=== PATIENT | female | born 2000 | race Two or more races ===

== ENCOUNTER 2018-02-09 11:07 | Emergency (ER) | payer BC ==
[~2018-02-09] VITALS: Ht 152.4 cm; Wt 81.0 kg
[~2018-02-09 11:07] MED LIST: NOHOMEMEDS; PREDNISONE50 MG PO
[2018-02-09 12:45] LABS: HEMATOCRIT 39.3 % (36.0-46.0); HEMOGLOBIN 13.2 G/DL (11.9-15.5); MCH 31.3 PG (29.0-34.0); MCHC 33.6 G/DL (30.0-36.0); MCV 93.1 FL (83-99); PLATELET COUNT 181 K/uL (156-360); RBC DIS.WIDTH-CV 12.1 % (11.8-14.6); RBC DIS.WIDTH-SD 41.7 % (39-53); RED BLOOD COUNT 4.22 M/uL (3.80-5.20)
[2018-02-09 12:52] LABS: ALBUMIN 4.3 g/dL (3.2-4.8); CHLORIDE 106 mEq/L (99-109); POTASSIUM 4.3 mEq/L (3.7-5.4); SODIUM 139 mEq/L (136-147)
[2018-02-09 12:55] LABS: GLUCOSE 87 mg/dL (70-99); TOTAL PROTEIN 7.1 g/dL (6.4-8.3)
[2018-02-09 12:57] LABS: TOTAL BILIRUBIN 0.3 mg/dL (0.0-1.0)
[2018-02-09 12:58] LABS: ALKALINE PHOSPHATASE 73 IU/L (3-129); CREATININE 0.7 mg/dL (0.6-1.3); GFR ESTIMATE (CALCULATED) > 59 mL/min/
[2018-02-09 12:59] LABS: UREA NITROGEN (BUN) 20 mg/dL (9-23)
[2018-02-09 13:00] LABS: AST (GOT) 18 IU/L (2-34)
[2018-02-09 13:01] LABS: ALT (GPT) 15 IU/L (3-49)
[2018-02-09 13:09] LABS: QUANTITATIVE HCG < 4.0 MIU/ML
[2018-02-09 13:10] LABS: APPEARANCE CLOUDY ((CLEAR)); BILIRUBIN NEGATIVE; BLOOD MODERATE; COLOR YELLOW ((YELLOW)); GLUCOSE (STRIP) NEGATIVE; KETONES NEGATIVE; LEUKOCYTES LARGE; NITRITE NEGATIVE; PROTEIN (STRIP) 100; SPECIFIC GRAVITY 1.034 (1.000-1.030)
[2018-02-09 13:25] LABS: BACTERIA 2+ /HPF; EPITHELIAL CELLS 2+ /HPF; MUCUS NONE SEEN /LPF; UCUL ADDED? YES; WHITE BLOOD CELLS TNTC /HPF (0-5)
[2018-02-09 15:07] VITALS: BP 132/71
== END 2018-02-09 15:08 | disposition home or self-care (01) ==
LOC: EME 11:07
DX: R10.2 Pelvic and perineal pain (principal)
CPT/HCPCS: 76856; 80053; 81003; 84702; 85027; 87086; 99281; 99284